=== PATIENT | male | born 1925 | race African-American/Black ===

== ENCOUNTER 2017-03-24 15:36 | Emergency (ER) | payer OTHER ==
[2017-03-24 15:41] VITALS: BMI 16.0
[2017-03-24] MEDS ORDERED: SODIUM PHOSPHATE/NA BIPHOS 133 ML ENEMA PR ONE (16:36)
--- NOTE | 2017-03-24 16:36 | PDOC ---
History of Present Illness - General History Source: Patient Exam Limitations: No Limitations - History of Present Illness Initial Comments: 03/24/17 17:36 The patient is an 89 year old male with a significant past medical history of diarrhea (on daily Miralax), who presents to the ER with constipation for several days. Patient visited his GI doctor, Dr. Rubin, one week ago who diagnosed patient with diarrhea. Patient states he took two pills of anti- diarrhea medication and a suppository. He states he has not been able to pass a bowel movement for several days. Patient states he otherwise has a bowel movement every day. He would like to pass a bowel movement but complains that he has pain in the rectum when he pushes. Denies nausea, vomiting, abdominal pain, diarrhea Denies fever, chills, cough Denies lightheadedness Denies dysuria, hematuria GI: Dr. Rubin <Haydee Elias - Last Filed: 03/24/17 17:36> - General History Source: Patient Exam Limitations: No Limitations - History of Present Illness Travel History: No <Jeramie Lucio - Last Filed: 03/24/17 18:39> - General Chief Complaint: Constipation Stated Complaint: CONSTIPATED/RECTAL PAIN Time Seen by Provider: 03/24/17 15:57 Past History <Haydee Elias - Last Filed: 03/24/17 17:36> - Past Medical History GI Disorders: Yes (ACID REFLUX) - Psycho/Social/Smoking Cessation Hx Anxiety: No Suicidal Ideation: No Smoking History: Former smoker Have you smoked in the past 12 months: No Number of Cigarettes Smoked Daily: 4 If you are a former smoker, when did you quit?: 5 yrs Information on smoking cessation initiated: No 'Breaking Loose' booklet given: 10/14/14 Hx Alcohol Use: No Drug/Substance Use Hx: No Substance Use Type: None Hx Substance Use Treatment: No <Jeramie Lucio - Last Filed: 03/24/17 18:39> - Past Medical History Allergies/Adverse Reactions: Allergies Allergy/AdvReac Type Severity Reaction Status Date / Time Penicillins AdvReac Verified 03/24/17 15:41 Home Medications: Ambulatory Orders Calcium Carbonate/Vitamin D3 [Calcium + Vitamin D Tablet] 1 each PO DAILY Cyanocobalamin (Vitamin B-12) [B-12] 2,500 mcg SL DAILY 09/15/14 Ranitidine [Zantac -] 150 mg PO BID 09/15/14 Review of Systems - Review of Systems Able to Perform ROS?: Yes Comments:: 03/24/17 17:37 CONSTITUTIONAL: No reported: Fever, Chills, Diaphoresis, Generalized Weakness, Malaise, Loss of Appetite HEENT: No reported: Rhinorrhea, Nasal Congestion, Throat Pain, Throat Swelling, Difficulty Swallowing, Mouth Swelling, Ear Pain, Eye Pain, Visual Changes CARDIOVASCULAR: No reported: Chest Pain, Syncope, Palpitations, Irregular Heart Rate, Lightheadedness, Peripheral Edema RESPIRATORY: No reported: Cough, Shortness of Breath, SOB with Exertion, Orthopnea, Wheezing , Stridor, Hemoptysis GASTROINTESTINAL: Reported: (+) Constipation No reported: Abdominal pain, Abdominal Distension, Nausea, Vomiting, Diarrhea, Melena, Hematochezia GENITOURINARY: No reported: Dysuria, Frequency, Urgency, Hesitancy, Flank Pain, Genital Pain MUSCULOSKELETAL: No reported: Myalgia, Arthralgia, Joint Swelling, Back pain, Neck Pain SKIN: No reported: Rash, Itching, Pallor HEMEATOLOGIC/IMMUNOLOGIC: No reported: Easy Bleeding, Easy Bruising, Lymphadenopathy, Frequent infections ENDOCRINE: No reported: Unexplained Weight Gain, Unexplained Weight Loss, Heat Intolerance , Cold Intolerance NEUROLOGIC: No reported: Headache, Focal Weakness, Paresthesias, Vertigo, Lightheadedness, Unsteady Gait, Seizure, Mental Status Changes, Incontinence PSYCHIATRIC: No reported: Anxiety, Depression <Uts,Haydee - Last Filed: 03/24/17 17:36> *Physical Exam - Vital Signs Last Vital Signs Temp Pulse Resp BP Pulse Ox 97.6 F 71 20 147/65 96 03/24/17 15:38 03/24/17 15:38 03/24/17 15:38 03/24/17 15:38 03/24/17 15:38 - Physical Exam Comments: 03/24/17 17:37 GENERAL: The patient is awake, alert, and fully oriented, Nontoxic - in no acute distress. HEAD: Normocephalic, atraumatic. EYES: extraocular movements intact, sclera anicteric, conjunctiva clear. ENT: Normal voice, Moist mucous membranes. NECK: Normal range of motion, supple LUNGS: Breath sounds equal, clear to auscultation bilaterally. No wheezes, no rhonchi, no rales. HEART: Regular rate and rhythm, without murmur, rub or gallop. ABDOMEN: Soft, nontender, normoactive bowel sounds. No guarding, no rebound.No CVA tenderness EXTREMITIES: Normal range of motion, no edema. No clubbing or cyanosis. No cords, erythema, or tenderness. NEUROLOGICAL: No facial assymetry, Normal speech, PSYCH: Normal mood, normal affect. SKIN: Warm, Dry, normal turgor RECTAL: impacted stool in the rectal vault <Uts,Haydee - Last Filed: 03/24/17 17:36> - Vital Signs Last Vital Signs Temp Pulse Resp BP Pulse Ox 97.6 F 71 20 147/65 96 03/24/17 15:38 03/24/17 15:38 03/24/17 15:38 03/24/17 15:38 03/24/17 15:38 <Jeramie Lucio - Last Filed: 03/24/17 18:39> ED Treatment Course - Medications Given in the ED: ED Medications Discontinued Medications Generic Name Dose Route Start Last Admin Trade Name Freq PRN Reason Stop Dose Admin Sodium Phosphate 133 ml 03/24/17 16:36 03/24/17 16:47 Fleet Adult Rectal Enema - HI 03/24/17 16:37 133 ml ONCE ONE Administration <Uts,Haydee - Last Filed: 03/24/17 17:36> Medical Decision Making - Medical Decision Making 03/24/17 16:37 89y M preseents with constipation, feels sensation of needing to go, but states he cant evacuate. denies any n/v, f/c, abd pain. on exam pt has a soft abdomen, his rectal exam noted for stool in the rectal vault, manual disempaction performed, will give fleet enema. A portion of this note was documented by scribe services under my direction. I have reviewed the details of the note, within reason, and agree with the documentation with the following case summary and management plan written by me <Jeramie Lucio - Last Filed: 03/24/17 18:39> *DC/Admit/Observation/Transfer - Attestations Scribe Attestion: 03/24/17 17:37 Documentation prepared by Haydee Elias, acting as medical services coordinator for Jeramie Lucio MD. <Haydee Elias - Last Filed: 03/24/17 17:36> - Discharge Dispostion Admit: No <Jeramie Lucio - Last Filed: 03/24/17 18:39> Diagnosis at time of Disposition: Constipation Qualifiers: Constipation type: other constipation type Qualified Code(s): K59.09 - Other constipation - Discharge Dispostion Disposition: HOME Condition at time of disposition: Improved - Referrals Referrals: Daniel Kraus MD [Primary Care Provider] - - Patient Instructions Printed Discharge Instructions: DI for Constipation Additional Instructions: Return to the emergency department immediately with ANY new, persistent or worsening symptoms including worsening abdominal pain, fevers, chills, inability to tolerate oral intake or any other concerns. Please increase your water intake, increasing physical activity and increase her fiber intake Continue your miralax. You MUST call and follow up with your doctor tomorrow for further evaluation of your symptoms. Your emergency department visit is not complete without a followup with your doctor for reevaluation. Results were discussed with you. Please make sure your doctor reviews the results of your emergency evaluation. Print Language: AUSTRALIAN
[2017-03-24 18:14] VITALS: BP 155/84; PULSE 60; TEMP 97.8
== END 2017-03-24 18:47 | disposition home or self-care (01) ==
LOC: JER 15:36
DX: K59.09 Other constipation (principal)
CPT/HCPCS: 99283-25